=== PATIENT | male | born 1990 | race Caucasian/White ===

== ENCOUNTER 2017-07-13 18:18 | Emergency (ER) | payer BC, SELFPAY ==
[2017-07-13 18:58] VITALS: BP 134/85; PULSE 93; RESP 20; TEMP 36.7; O2SAT 99; BMI 25.1
--- NOTE | 2017-07-13 19:27 | HMH.EDUTC ---
[facility] [place]ression: Otitis media Qualifiers: Otitis media type: unspecified Laterality: left Qualified Code(s): H66.92 - Otitis media, unspecified, left ear Disposition: Home, Self-Care Condition on Discharge: Good Instructions: DI for Ear Pain-Adult, Sore Throat, DI for Cough -- Adult Additional Instructions: * Monitor Temp. Tylenol and/or Ibuprofen as needed. ER if fever is no less than 101 despite alternating Tylenol and Ibuprofen * Encourage fluids, water, Gatorade, powerade, pedialyte if /toddler/or child * Warm salt water gargles for throat irritation *Warm fluids *Sore throat lozenges *Sleep elevated *humidifier or vaporizer Lots of rest Increase fluids, water, Gatorade, powerade *Bromfed may cause drowsiness. Know how it effect you or your child. Before driving, caring for small children or sending your child to school Follow up IMMEDIATELY for new or worsening of symptoms OR no noticeable improvement over the next 48-72 hours. 911 immediately for any life threatening symptoms such as chest pain or difficulty breathing Prescriptions: Brompheniramine/Pseudoephed/Dm [Bromfed DM Cough Syrup 5mL] 10 ml PO Q4H PRN #200 syrup PRN Reason: Cough Cefdinir [Omnicef 300mg Capsule] 300 mg PO BID #20 cap predniSONE [Prednisone 5mg Tab Dose-Pack] 5 mg PO UD DOSE PK #1 pack Referrals: Yari Jackson MD [Primary Care Provider] - Medical Decision Making - Medical Records Medical records reviewed: Yes: I reviewed the patient's medical records. Vital Signs: 07/13/17 18:58 Temperature 98.1 F Temperature Source Temporal Artery Scan Pulse Rate [Right Radial] 93 H Respiratory Rate 20 Blood Pressure [Right Arm] 134/85 Blood Pressure Mean [Right Arm] 101 Blood Pressure Source [Right Arm] Automatic Cuff Blood Pressure Position [Right Arm] Sitting 02 Sat by Pulse Oximetry 99 Oxygen Delivery Method Room Air - Shun Inquiry Pt receiving controlled substance: No Shun was queried for this patient: No - Reevaluation(s) Reevaluation #1: Patient states that he is allergic to Penicillin but has taken Cephosporins before with no reaction [facility] [place] - General Stated complaint: head congestion, ear pain Mode of Arrival: Family Vehicle Source of Information: Patient Limitations: No Limitations Description of Symptoms (Recalled from Triage Doc. by RN): BILATERAL EAR PAIN, DIZZINESS, COUGH FOR ONE WEEK HEENT Symptoms (Recalled from RN notes): Yes (BILATERAL EAR PAIN AND DIZZINESS) Resp Symptoms (Recalled from RN notes): Yes (COUGH) Skin Symptoms (Recalled from RN notes): No MS Symptoms (Recalled from RN notes): No Functional Status (Recalled from RN notes): NA - History of Present Illness Provider Complaint: Patient state that he has been having bilateral ear pain. Patient states that pain in his left ear is worse than that in the right and he has had cough along with sore throat and body aches State that he has not had a fever but the pain in his ear hurts into his throat when he swallows - Related Data Home Medications Medication Instructions Recorded Confirmed Sertraline HCl [Zoloft] 200 mg PO DAILY 07/13/17 07/13/17 Previous Rx's Medication Instructions Recorded Brompheniramine/Pseudoephed/Dm 10 ml PO Q4H PRN #200 syrup 07/13/17 [Bromfed DM Cough Syrup 5mL] Cefdinir [Omnicef 300mg Capsule] 300 mg PO BID #20 cap 07/13/17 predniSONE [Prednisone 5mg Tab 5 mg PO UD DOSE PK #1 pack 07/13/17 Dose-Pack] Allergies Allergy/AdvReac Type Severity Reaction Status Date / Time milk Allergy Verified 07/13/17 19:06 Penicillins Allergy Verified 07/13/17 19:06 - Worker's Comp Is this a Worker's Comp case?: No Is this an [facility] Worker's Comp?: No Is this a [place] Worker's Comp?: No [facility] History I have reviewed the patient's past medical history: Yes Medical History: Denies:: Cancer, Diabetes Mellitus Type 1, Diabetes Mellitus Type 2, MRSA Amputation: No - *Social Histo
--- NOTE | 2017-07-13 19:33 | ED_ITS ---
[facility] [place] Clinical Impression: Otitis media Qualifiers: Otitis media type: unspecified Laterality: left Qualified Code(s): H66.92 - Otitis media, unspecified, left ear Disposition: Home, Self-Care Condition on Discharge: Good Instructions: DI for Ear Pain-Adult, Sore Throat, DI for Cough -- Adult Additional Instructions: * Monitor Temp. Tylenol and/or Ibuprofen as needed. ER if fever is no less than 101 despite alternating Tylenol and Ibuprofen * Encourage fluids, water, Gatorade, powerade, pedialyte if infant/toddler/or child * Warm salt water gargles for throat irritation *Warm fluids *Sore throat lozenges *Sleep elevated *humidifier or vaporizer Lots of rest Increase fluids, water, Gatorade, powerade *Bromfed may cause drowsiness. Know how it effect you or your child. Before driving, caring for small children or sending your child to school Follow up IMMEDIATELY for new or worsening of symptoms OR no noticeable improvement over the next 48-72 hours. 911 immediately for any life threatening symptoms such as chest pain or difficulty breathing Prescriptions: Brompheniramine/Pseudoephed/Dm [Bromfed DM Cough Syrup 5mL] 10 ml PO Q4H PRN # 200 syrup PRN Reason: Cough Cefdinir [Omnicef 300mg Capsule] 300 mg PO BID #20 cap predniSONE [Prednisone 5mg Tab Dose-Pack] 5 mg PO UD DOSE PK #1 pack Referrals: Yari Jackson MD [Primary Care Provider] - Medical Decision Making - Medical Records Medical records reviewed: Yes: I reviewed the patient's medical records. Vital Signs: 07/13/17 18:58 Temperature 98.1 F Temperature Source Temporal Artery Scan Pulse Rate [Right Radial] 93 H Respiratory Rate 20 Blood Pressure [Right Arm] 134/85 Blood Pressure Mean [Right Arm] 101 Blood Pressure Source [Right Arm] Automatic Cuff Blood Pressure Position [Right Arm] Sitting 02 Sat by Pulse Oximetry 99 Oxygen Delivery Method Room Air - Shun Inquiry Pt receiving controlled substance: No Shun was queried for this patient: No - Reevaluation(s) Reevaluation #1: Patient states that he is allergic to Penicillin but has taken Cephosporins before with no reaction [facility] [place] HPI - General Stated complaint: head congestion, ear pain Mode of Arrival: Family Vehicle Source of Information: Patient Limitations: No Limitations Description of Symptoms (Recalled from Triage Doc. by RN): BILATERAL EAR PAIN, DIZZINESS, COUGH FOR ONE WEEK HEENT Symptoms (Recalled from RN notes): Yes (BILATERAL EAR PAIN AND DIZZINESS) Resp Symptoms (Recalled from RN notes): Yes (COUGH) Skin Symptoms (Recalled from RN notes): No MS Symptoms (Recalled from RN notes): No Functional Status (Recalled from RN notes): NA - History of Present Illness Provider Complaint: Patient state that he has been having bilateral ear pain. Patient states that pain in his left ear is worse than that in the right and he has had cough along with sore throat and body aches State that he has not had a fever but the pain in his ear hurts into his throat when he swallows - Related Data Home Medications Medication Instructions Recorded Confirmed Sertraline HCl [Zoloft] 200 mg PO DAILY 07/13/17 07/13/17 Previous Rx's Medication Instructions Recorded Brompheniramine/Pseudoephed/Dm 10 ml PO Q4H PRN #200 syrup 07/13/17 [Bromfed DM Cough Syrup 5mL] Cefdinir [Omnicef 300mg Capsule] 300 mg PO BID #20 cap 07/13/17 predn
== END 2017-07-13 19:45 | disposition home or self-care (01) ==
PROVIDERS: Emergency Provider Nurse Practitioner; PCP Family Medicine
DX: H66.92 Otitis media, unspecified, left ear (principal); Z88.0 Allergy status to penicillin
CPT/HCPCS: 99201

== ENCOUNTER → 2017-10-30 14:42 | Outpatient (POV) | payer BC, SELFPAY | PROVIDERS: PCP Family Medicine; Visit Provider Physician Assistant | DX: Z00.00 Encounter for general adult medical examination without abnormal findings (principal) ==

== ENCOUNTER → 2018-01-29 13:15 | Outpatient (POV) | payer BC, SELFPAY | PROVIDERS: PCP Family Medicine; Visit Provider Physician Assistant | DX: Z00.00 Encounter for general adult medical examination without abnormal findings (principal) ==

== ENCOUNTER 2020-05-01 13:54 | Emergency (ER) | payer MEDICAID, SELFPAY ==
[2020-05-01 15:00] VITALS: BP 152/86; PULSE 77; RESP 20; TEMP 36.9; O2SAT 99; BMI 24.4
--- NOTE | 2020-05-01 15:20 | HMH.EDUTC ---
[facility] [place]position Clinical Impression: Exposure to COVID-19 virus Disposition: Home, Self-Care Condition on Discharge: Good Instructions: Preventing the Spread of Coronavirus Discharge Instructions Additional Instructions: Drink plenty of fluids. Take tylenol for pain or fever. Return if you begin to have difficulty breathing. Follow up with your regular doctor. GO TO THE ER FOR ANY WORSENING SYMPTOMS Referrals: Missael Grajeda MD [Primary Care Provider] - Time of Disposition: 15:23 Medical Decision Making - Medical Records Medical records reviewed: No: I reviewed the patient's medical records. - Shun Inquiry Pt receiving controlled substance: No Vital Signs: 05/01/20 15:00 05/01/20 15:26 Temperature 98.4 F 98.4 F Temperature Source Oral Pulse Rate 77 Pulse Rate [Right Brachial] 77 Respiratory Rate 20 20 Blood Pressure 152/86 H Blood Pressure [Right Arm] 152/86 H Blood Pressure Mean [Right Arm] 108 Blood Pressure Source [Right Arm] Automatic Cuff Blood Pressure Position [Right Arm] Sitting 02 Sat by Pulse Oximetry 99 Oxygen Delivery Method Room Air Orders (Tests/Meds): ORDERS Category Date Time Status Covid-19 Nasal PCR ([facility]) Routine Lab 05/01/20 15:00 Received [facility] [place] HPI - General Stated complaint: Covid exposure Time Seen by Provider: 05/01/20 15:20 Mode of Arrival: Ambulatory Source of Information: Patient Limitations: No Limitations Description of Symptoms (Recalled from Triage Doc. by RN): REQUESTING COVID TEST D/T EXPOSURE; DENIES SYMPTOMS HEENT Symptoms (Recalled from RN notes): No Resp Symptoms (Recalled from RN notes): No Skin Symptoms (Recalled from RN notes): No MS Symptoms (Recalled from RN notes): No Functional Status (Recalled from RN notes): WNL - History of Present Illness Provider Complaint: His parents have covid. He does not have any symptoms, but he needs to have a test. - Related Data Allergies Allergy/AdvReac Type Severity Reaction Status Date / Time milk Allergy Verified 07/13/17 19:06 Penicillins Allergy Verified 07/13/17 19:06 - Worker's Comp Is this a Worker's Comp case?: No [facility] History - Hepatitis A Screen Drug use history?: No High risk sexual behaviors?: No History of sexually transmitted infection?: No Currently employed?: No Childcare worker?: No Do you have indoor plumbing?: Yes Do you have electricity?: Yes Attestation statement:: This patient has been screened for Hepatitis A risk factors. I have reviewed the patient's past medical history: Yes Medical History: Denies:: Cancer, Diabetes Mellitus Type 1, Diabetes Mellitus Type 2, MRSA Laterality Cases: Bilateral: Myringotomy (Ear Tubes), Tonsillectomy Amputation: No - Social History Smoking Status: Never smoker Alcohol Intake: never Occupational Status: other Housing: house ROS Obtained: Yes All systems reviewed & no additional complaints - Constitutional Constitutional: Reports system reviewed and no additional complaints, except as docu - Eyes Eyes: Reports system reviewed and no additional complaints, except as docu - ENT Ears, Nose, Mouth, and Throat: Reports system reviewed and no additional complaints, except as docu - Cardiovascular Cardiovascular: Reports system reviewed and no additional complaints, except as docu - Respiratory Respiratory: Yes system reviewed and no additional complaints, except as docu - Gastrointestinal Gastrointestingal: Reports: system reviewed and no additional complaints, except as docu Physical Exam - General General appearance: alert, in no apparent distress - Head Head exam: atraumatic, normocephalic, normal inspection - Eye Eye exam: Present: normal appearance, PERRL, EOMI - ENT ENT exam: Present: normal exam, normal oropharynx, mucous membranes moist, TM's normal bilaterally, normal external ear exam - Neck Neck exam: Present: normal inspection, full ROM, trachea midline. Absent
[2020-05-01 15:26] VITALS: BP 152/86; PULSE 77; RESP 20; TEMP 36.9; O2SAT 99
== END 2020-05-01 15:27 | disposition home or self-care (01) ==
PROVIDERS: Emergency Provider Nurse Practitioner Family; PCP Family Medicine
DX: Z20.828 Contact with and (suspected) exposure to other viral communicable diseases (principal)
CPT/HCPCS: 99201; U0003

== ENCOUNTER 2020-06-21 14:45 | Emergency (ER) | payer OTHER, SELFPAY ==
[2020-06-21 16:43] VITALS: BP 126/87; PULSE 78; RESP 16; TEMP 36.8; O2SAT 98; BMI 24.4
--- NOTE | 2020-06-21 17:12 | HMH.EDUTC ---
[facility] [place]: Encounter for laboratory testing for COVID-19 virus Disposition: Home, Self-Care Condition on Discharge: Good Instructions: Sore Throat, DI for COVID-19 (Suspected or Confirmed ), Coronavirus Disease 2019, Preventing the Spread of Coronavirus Discharge Instructions Additional Instructions: *Monitor Temp, Over the counter Motrin or Tylenol as directed/as needed Tylenol every 4 hours and Motrin every 6 hours (as long as your family doctor has told you that you can take it) for fever or pain. and straight to ER if unable to lower temp less than 101.0 after medication given *Warm salt water gargles may help to soothe the throat *Throat Lozenges *Warm fluids like tea with honey may help to soothe the throat *Sleep elevated *Humidifier/Vaporizer Follow up IMMEDIATELY for new or worsening symptoms or no Noticeable improvement over the next 48-72 hours. 911 for difficulty breathing or swallowing You were tested for today for COVID19 your test result should be back in the next 24-48 hours, you may call to the [facility] to see if your test results are back in the next 48 hours [phone] [facility] hours are 9am-9pm You was given a handout with instructions for Self Quarantine and Self isolation for while you wait on test results and what to do if they are positive If you are positive the Health Dept will be contacting you also Referrals: Yari Jackson MD [Primary Care Provider] - As needed Time of Disposition: 17:39 Medical Decision Making - Shun Inquiry Pt receiving controlled substance: No Shun was queried for this patient: No Vital Signs: 06/21/20 16:43 Temperature 98.2 F Temperature Source Oral Pulse Rate [Left Radial] 78 Respiratory Rate 16 Blood Pressure [Left Arm] 126/87 Blood Pressure Mean [Left Arm] 100 Blood Pressure Source [Left Arm] Automatic Cuff Blood Pressure Position [Left Arm] Sitting 02 Sat by Pulse Oximetry 98 Oxygen Delivery Method Room Air Orders (Tests/Meds): ORDERS Category Date Time Status Covid-19 Nasal PCR ([facility]) Routine Lab 06/21/20 17:00 [place] [facility] [place] - General Stated complaint: covid test Time Seen by Provider: 06/21/20 17:12 Mode of Arrival: Ambulatory Source of Information: Patient Limitations: No Limitations Description of Symptoms (Recalled from Triage Doc. by RN): Pt reports possible exposure to covid, states sore throat and drainage that began yesterday HEENT Symptoms (Recalled from RN notes): Yes (pt reports sore throat) Resp Symptoms (Recalled from RN notes): No Skin Symptoms (Recalled from RN notes): No MS Symptoms (Recalled from RN notes): No Functional Status (Recalled from RN notes): n/a - History of Present Illness Provider Complaint: Patient states that he has been having sore throat, nasal drainage and naggy cough that started yesterday States that he was worried that he may have been around someone that had covid and wanted to get tested - Related Data Home Medications Medication Instructions Recorded Confirmed No Known Home Medications 05/15/20 05/15/20 Allergies Allergy/AdvReac Type Severity Reaction Status Date / Time milk Allergy Verified 05/15/20 15:34 Penicillins Allergy Verified 05/15/20 15:34 - Worker's Comp Is this a Worker's Comp case?: No [facility] History - Hepatitis A Screen Drug use history?: No High risk sexual behaviors?: No History of sexually transmitted infection?: No Currently employed?: No Childcare worker?: No Do you have indoor plumbing?: Yes Do you have electricity?: Yes Attestation statement:: This patient has been screened for Hepatitis A risk factors. I have reviewed the patient's past medical history: Yes Medical History: Denies:: Cancer, Diabetes Mellitus Type 1, Diabetes Mellitus Type 2, MRSA Laterality Cases: Bilateral: Myringotomy (Ear Tubes), Tonsillectomy Amputation: No - Social History Smoking Status: Never smoker Alcohol Intake: never Occupational S
[2020-06-21 17:49] VITALS: BP 126/87; PULSE 78; RESP 16; TEMP 36.8; O2SAT 98
[2020-06-21 19:51] LABS: UTC Strep Screen (Rapid) Negative (Negative)
--- NOTE | 2020-06-22 16:00 | PC.NURSE ---
PATIENT NOTIFIED OF POSITIVE COVID RESULTS
== END 2020-06-21 17:51 | disposition home or self-care (01) ==
PROVIDERS: Emergency Provider Nurse Practitioner; PCP Family Medicine
DX: U07.1 COVID-19 (principal)
CPT/HCPCS: 87880; 99202; G0463; U0003

== ENCOUNTER → 2022-08-31 23:00 | Outpatient (CLI) | payer OTHER, SELFPAY ==
[2022-08-31 17:19] LABS: Adenovirus,PCR Not Detected (NotDetected); Bordetella Pertussis Not Detected (NotDetected); Chlamydophila Pneumoniae, PCR Not Detected (NotDetected); Coronavirus 229E Not Detected (NotDetected); Coronavirus NL63 Not Detected (NotDetected); Coronavirus OC43 Not Detected (NotDetected); Coronovirus HKU1,PCR Not Detected (NotDetected); Human Metapneumovirus Not Detected (NotDetected); Influenza A, PCR Not Detected (NotDetected); Influenza AH1, 2009 Not Detected (NotDetected); Influenza AH1, PCR Not Detected (NotDetected); Influenza AH3,PCR Not Detected (NotDetected); Influenza B, PCR Not Detected (NotDetected); Mycoplasma Pneumoniae, PCR Not Detected (NotDetected); Parainfluenza 1, PCR Not Detected (NotDetected); Parainfluenza 2, PCR Not Detected (NotDetected); Parainfluenza 3, PCR Not Detected (NotDetected); Parainfluenza 4, PCR Not Detected (NotDetected); Respiratory Syncytial Virus Not Detected (NotDetected); Rhinovirus/Enterovirus Not Detected (NotDetected)
[2022-08-31 21:12] LABS: Coronavirus 19, PCR Detected (NotDetected)
== END ==
LOC: LAB.DROPOF 09-01 00:02
PROVIDERS: PCP Nurse Practitioner Family; Visit Provider Nurse Practitioner Family
DX: U07.1 COVID-19 (principal); J02.9 Acute pharyngitis, unspecified; B34.9 Viral infection, unspecified
CPT/HCPCS: 87070; 87581; 87632; 87798; C9803; U0003; U0005

== ENCOUNTER → 2023-03-13 15:04 | Outpatient (CLI) | payer SELFPAY ==
[2023-03-13 13:15] LABS: Basophils % 0.6 % (0.1-2.0); Eosinophils % 1.1 % (0.1-12.0); Hematocrit 49.9 % (42.0-52.0); Lymphocytes # 1.6 K/mm3 (0.7-4.5); Lymphocytes % 38.6 % (10-50); Mean Corpuscular HGB Conc 32.1 g/dL (31.8-35.4); Mean Corpuscular Hemoglobin 30.1 pg (27.0-31.2); Mean Corpuscular Volume 93.8 fl (80-94); Mean Platelet Volume 8.9 fl (7.4-10.4); Monocytes # 0.4 K/mm3 (0.1-1.0); Monocytes % 9.1 % (1.7-9.3); Neutrophils # 2.1 K/mm3 (1.8-7.8); Neutrophils % 50.7 % (37.0-80.0); Platelet Count 270 K/mm3 (142-424); Red Blood Count 5.32 M/mm3 (4.60-6.20); Red Cell Distribution Width 13.2 % (11.5-17.5); White Blood Count 4.2 K/mm3 (4.8-10.8)
[2023-03-13 14:24] LABS: Alanine Aminotransferase 31 U/L (12-78); Albumin Level 4.6 g/dl (3.5-5.0); Albumin/Globulin Ratio 1.5 (1.1-1.8); Alkaline Phosphatase 71 U/L (38-126); Anion Gap 14.4 mEq/L (5-15); Aspartate Amino Transferase 34 U/L (17-59); Bilirubin,Total 0.8 mg/dl (0.2-1.3); Blood Urea Nitrogen 15 mg/dl (9-20); Calcium 9.4 mg/dl (8.4-10.2); Carbon Dioxide 29 mmol/L (22.0-30.0); Chloride 101 mmol/L (98-107); Estimated Glomerular Filt Rate 98 ml/min (>60); GFR (African American) 119 ML/MIN (>60); Glucose 85 mg/dl (74-100); Potassium 4.4 mmoL/L (3.5-5.1); Sodium 140 mmol/L (136-145); Total Protein,Serum 7.6 g/dl (6.3-8.2)
[2023-03-13 14:52] LABS: Thyroid Stimulating Hormone 0.65 uIU/mL (0.465-4.68)
[2023-03-13 16:05] LABS: Ferritin 109 ng/ml (17.9-464)
== END ==
PROVIDERS: PCP Nurse Practitioner Family; Visit Provider Nurse Practitioner Family
DX: E16.2 Hypoglycemia, unspecified (principal); R00.0 Tachycardia, unspecified; R00.2 Palpitations
CPT/HCPCS: 80053; 82728; 83036; 84443; 85025

== ENCOUNTER → 2023-05-29 15:30 | Outpatient (CLI) | payer SELFPAY ==
--- NOTE | 2023-05-29 15:32 | ECG_ITS ---
APPROVED REPORT Exam: Resting ECG HR:80 bpm ECG Measurements Heart Rate [address] 124 P 32 QRSd 110 QRS 48 QT 348 T 41 QTc 385 Conclusion SINUS RHYTHM POSSIBLE RIGHT VENTRICULAR CONDUCTION DELAY [RSR (QR) IN V1/V2] BORDERLINE ECG UNCONFIRMED REPORT Electronically signed by : Missael Jolley MD 05/31/2023 18:44:04
== END ==
PROVIDERS: PCP Nurse Practitioner Family; Visit Provider Internal Medicine
DX: I49.9 Cardiac arrhythmia, unspecified (principal); R07.89 Other chest pain
CPT/HCPCS: 93005

== ENCOUNTER 2023-10-22 20:27 | Emergency (ER) | payer OTHER, SELFPAY ==
[2023-10-22 20:29] VITALS: BP 154/81; PULSE 79; RESP 20; TEMP 36.9; O2SAT 100; BMI 25.8
--- NOTE | 2023-10-22 21:14 | XR_ITS ---
PROCEDURE INFORMATION: Exam: XR Chest Exam date and time: 10/22/2023 9:08 PM Age: 32 years old Clinical indication: Chest wall pain and right-sided; Additional info: Right sided thoracic injury TECHNIQUE: Imaging protocol: Radiologic exam of the chest. Views: 2 views. Total images: 2 COMPARISON: No relevant prior studies available. FINDINGS: Lungs: Calcified left upper lobe granuloma. Lungs are clear and well expanded. No airspace consolidation, infiltrate or vascular congestion. Pleural spaces: Unremarkable. No pleural effusion. No pneumothorax. Heart/Mediastinum: Unremarkable. No cardiomegaly. No mediastinal widening or hilar enlargement. Bones/joints: Mild thoracolumbar scoliosis. Mild degenerative changes thoracic spine. Mild loss of thoracic vertebral body height involving multiple consecutive lower thoracic vertebral bodies likely reflecting a developmental spondylopathy. IMPRESSION: 1. No radiographically acute cardiopulmonary process. 2. Thoracolumbar scoliosis 3. Suspect developmental spondylopathy lower thoracic spine.
[2023-10-22] MEDS: IBUPROFEN 600 MG TABLET PO (22:42)
[2023-10-22] MEDS: ACETAMINOPHEN 500MG TAB 1000 MG PO (22:42)
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
[2023-10-22 23:10] VITALS: BP 145/75; PULSE 71; RESP 18; TEMP 36.9; O2SAT 99
== END 2023-10-22 23:11 | disposition home or self-care (01) ==
PROVIDERS: Emergency Provider Emergency Medicine; PCP Nurse Practitioner Family
DX: R07.81 Pleurodynia (principal); W50.2XXA Accidental twist by another person, initial encounter
CPT/HCPCS: 71046; 99283

== ENCOUNTER 2024-05-28 13:32 | Outpatient (CLI) | payer OTHER, SELFPAY ==
[2024-05-28 16:31] LABS: Microscopic, Urine URINE MICROSCOPIC (MICROSCOPIC)
[2024-05-28 16:33] LABS: Coronavirus 19, PCR Not Detected (NotDetected); Influenza A, PCR Not Detected (NotDetected); Influenza B, PCR Not Detected (NotDetected)
[2024-05-28 16:42] LABS: Appearance,Urine CLEAR (Clear); Bilirubin,Urine Negative (Negative); Blood, Urine Negative (Negative); Color,Urine YELLOW (Yellow); Glucose,Urine (UA) Negative (Negative); Ketones,Urine Negative (Negative); Leukocyte Esterase,Urine Negative (Negative); Nitrate,Urine Negative (Negative); Protein,Urine Negative (Negative); Specific Gravity, Urine 1.015 (1.005-1.030); Urobilinogen,Urine 0.2 EU/dl (0.2)
[2024-05-28 17:21] LABS: Alanine Aminotransferase 35 U/L (12-78); Albumin Level 4.7 g/dl (3.5-5.0); Alkaline Phosphatase 68 U/L (38-126); Anion Gap 12.8 mEq/L (5-15); Aspartate Amino Transferase 41 U/L (17-59); Bilirubin,Total 0.4 mg/dl (0.2-1.3); Blood Urea Nitrogen 14 mg/dl (9-20); Calcium 9.5 mg/dl (8.4-10.2); Carbon Dioxide 28 mmol/L (22.0-30.0); Chloride 103 mmol/L (98-107); Estimated Glomerular Filt Rate 87 ml/min (>60); GFR (African American) 105 ML/MIN (>60); Globulin 2.4 g/dL (1.3-3.2); Glucose 112 mg/dl (74-100); Potassium 3.8 mmoL/L (3.5-5.1); Sodium 140 mmol/L (136-145); Total Protein,Serum 7.1 g/dl (6.3-8.2)
[2024-05-28 17:35] LABS: 25-OH Vitamin D, Total 36.8 ng/mL (30-100); Free T4 (Free Thyroxine) 1.08 ng/dl (0.78-2.19)
[2024-05-28 18:01] LABS: HIV Combo NEGATIVE (Negative)
[2024-05-28 18:15] LABS: RBC,Urine Occasional #/hpf (0-3); WBC,Urine Occasional #/hpf (0-3)
[2024-05-28 18:29] LABS: Thyroid Stimulating Hormone 0.95 uIU/mL (0.465-4.68)
[2024-05-28 18:30] LABS: Vitamin B12 556 pg/mL (239-931)
[2024-05-28 18:38] LABS: Iron 93 ug/dL (49-181)
[2024-05-28 18:49] LABS: Total Iron Binding Capacity 360 ug/dL (261-462)
[2024-05-28 19:12] LABS: Hematocrit 47.8 % (42.0-52.0); Hemoglobin 15.8 g/dL (14.1-18.0); Red Blood Count 5.07 M/mm3 (4.60-6.20); White Blood Count 4.9 K/mm3 (4.8-10.8)
[2024-05-28 19:13] LABS: Basophils % 0.8 % (0.1-2.0); Eosinophils # 0.1 K/mm3 (0.0-0.4); Eosinophils % 2.7 % (0.1-12.0); Ferritin 110 ng/ml (17.9-464); Lymphocytes # 1.9 K/mm3 (0.7-4.5); Lymphocytes % 37.8 % (10-50); Mean Corpuscular HGB Conc 33.1 g/dL (31.8-35.4); Mean Corpuscular Hemoglobin 31.2 pg (27.0-31.2); Mean Corpuscular Volume 94.3 fl (80-94); Mean Platelet Volume 10.6 fl (7.4-10.4); Monocytes # 0.4 K/mm3 (0.1-1.0); Neutrophils # 2.4 K/mm3 (1.8-7.8); Neutrophils % 49.5 % (37.0-80.0); Platelet Count 296 K/mm3 (142-424); Red Cell Distribution Width 12.5 % (11.5-17.5)
[2024-05-28 20:10] LABS: Hemoglobin A1C 5.1 % (4.0-6.0)
[2024-05-29 06:22] LABS: HCV Ab Non Reactive (Non Reactive)
[2024-05-29 17:08] LABS: EBV Ab VCA, IgG 60.8 U/mL (0.0-17.9); EBV Ab VCA, IgM 44.7 U/mL (0.0-35.9)
== END 2024-05-28 23:59 | disposition home or self-care (01) ==
LOC: LAB.DROPOF 05-29 11:09
PROVIDERS: PCP Nurse Practitioner Family; Visit Provider Nurse Practitioner Family
DX: R53.83 Other fatigue (principal); Z13.1 Encounter for screening for diabetes mellitus; Z11.59 Encounter for screening for other viral diseases; Z11.4 Encounter for screening for human immunodeficiency virus [HIV]; J98.8 Other specified respiratory disorders; B97.89 Other viral agents as the cause of diseases classified elsewhere
CPT/HCPCS: 80050; 80053; 81001; 82306; 82607; 82728; 83036; 83540; 83550; 84439; 84443; 85025; 86664; 86665; 86803; 87086; 87389; 87636